=== PATIENT | female | born 1970 | race Caucasian/White ===

== ENCOUNTER 2016-11-01 11:31 | Emergency (ER) | payer OTHER ==
[~2016-11-01 11:31] MED LIST: /TRAZ10TA PO; AUGM875T27 PO; PAXI20TA3 PO; TRAZ100T2 PO; no home meds
--- NOTE | 2016-11-01 13:08 | EDDOCDS ---
[facility]: Adia Marre[facility] Age: 46 yrs Sex: Female : 1970 Arrival Date: 11/01/2016 Time: 11:31 Bed PR Private MD: NO PRIMARY PHYSICIAN, . Disposition: 11/01/16 12:56 Discharged to Home/Self Care. Impression: Pain in left wrist. - Condition is Stable. - Discharge Instructions: Gamekeeper's, Skier's Thumb, Wrist Pain. - Medication Reconciliation, Local Pharmacy Hours form. - Follow up: Orthopaedics, [facility]; When: Call to arrange an appointment; Reason: Further diagnostic work-up, Recheck today's complaints, Continuance of care. - Problem is an ongoing problem. - Symptoms are unchanged. Historical: - Allergies: no known allergies; - Home Meds: 1. Methadone 117mg Oral once daily - PMHx: opiate abuse; - PSHx: ; Gall Bladder Removal; - Social history: Smoking status: Patient uses tobacco products, current every day smoker. No barriers to communication noted, The patient speaks fluent Amharic, Speaks appropriately for age. - Family history: Not pertinent. - : The pt / caregiver states he / she is not on anticoagulants. Home medication list is obtained from the patient. - Exposure Risk Screening:: None identified. 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 3 in. (160.02 cm); Pain 5/10; 12:53 BP 133 / 79; Pulse 102; Resp 18; Temp 97.8(O); Pulse Ox 97% on R/A; Pain 5/10; jb5 11:32 Body Mass Index 29.23 (74.84 kg, 160.02 cm) elp MDM: 11:44 Wrist, Complete Ordered. EDMS 12:00 Financial registration complete. lg 12:08 [facility] [place] Agreement was scanned into [employer] and attached to record. mm15 12:08 [facility] Payment Agreement was scanned into [employer] and attached to record. mm15 12:54 [facility] [place]. Nursing Order ordered. btw Signatures: Dispatcher [employer] EDMS Roxanna Lewis, CAPO RN Siri Szymanski, Eber Lucero lg, PA PA btw Osorio Teague mm15 The chart was reviewed and I authenticate all verbal orders and agree with the evaluation and treatment provided.Attachments: 12:08 [facility] Payment Agreement mm15 MTDD
--- NOTE | 2016-11-01 13:09 | EDDOCDS ---
Nurse's Notes [facility] Name: Adia Marrero Age: 46 yrs Sex: Female : 1970 Arrival Date: 11/01/2016 Time: 11:31 Bed PR Private MD: NO PRIMARY PHYSICIAN, . Diagnosis: Pain in left wrist Presentation: 11/01 11:34 Presenting complaint: Patient states: left wrist pain for 2 months. injured it 2 months srm ago and never had it looked at. pt states it swollen and discolored. Adult Sepsis Screening: The patient does not have new or worsening altered mentation. Patient's respiratory rate is less than 22. Systolic blood pressure is greater than 100. Patient has a qSOFA score of 0- Negative Sepsis Screen. Suicide/Homicide risk assessment- the patient denies having any suicidal and/or homicidal ideations and does not present with any other emotional, behavioral or mental health complaints. Status: Patient is not a business services associate or dependent. Transition of care: patient was not received from another setting of care. 11:34 Acuity: GUILLAUME Level 4 srm 11:34 Method Of Arrival: Walkin/Carried/Asstd srm Triage Assessment: 11:36 General: Appears in no apparent distress, Behavior is appropriate for age, cooperative. srm Pain: Pain currently is 5 out of 10 on a pain scale. HIV screening NA for this visit Offered previously. Musculoskeletal: Reports left wrist pain. 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 Methadone 117mg Oral once daily - PMHx: opiate abuse; - PSHx: ; Gall Bladder Removal; - Social history: Smoking status: Patient uses tobacco products, current every day smoker. No barriers to communication noted, The patient speaks fluent Kyrgyz, Speaks appropriately for age. - Family history: Not pertinent. - : The pt / caregiver states he / she is not on anticoagulants. Home medication list is obtained from the patient. - Exposure Risk Screening:: None identified. Screenin:05 Screening information is obtained from the patient. Fall risk: No risks identified. srm Assistance ADL's: requires no assistance with activities of daily living. Abuse/DV Screen: The patient / caregiver reports he/she is: not in a situation that causes fear, pain or injury. Nutritional screening: No deficits noted. Advance Directives: There is no active DNR order. home support is adequate. Assessment: 13:05 General: Appears in no apparent distress, Behavior is appropriate for age, cooperative. srm Neurological: No deficits noted. EENT: No deficits noted. Musculoskeletal: Circulation, motion, and sensation intact Capillary refill < 3 seconds in left fingers. Vital Signs: 11:32 BP 144 / 86; Pulse 116; Resp 20; Temp 98.8(O); Pulse Ox 99% on R/A; Weight 74.84 kg; elp Height 5 ft. 3 in. (160.02 cm); Pain 5/10; 12:53 BP 133 / 79; Pulse 102; Resp 18; Temp 97.8(O); Pulse Ox 97% on R/A; Pain 5/10; jb5 11:32 Body Mass Index 29.23 (74.84 kg, 160.02 cm) elp Vitals: 11:32 Log In Time: November 01, 2016 at 11:30. elp ED Course: 11:31 Patient visited by Kary Villegas PCA. elp 11:31 NO PRIMARY PHYSICIAN, . is Private Physician. elp 11:31 Patient moved to Waiting elp 11:34 Patient visited by Kary Villegas PCA. elp 11:34 Patient moved to Pre RCE elp 11:35 Triage Initiated srm 11:39 Patient moved to Triage 2 srm 11:53 [facility] Sams [facility]. btw 11:53 Sony Grande MD is Attending Physician. btw 11:54 Patient visited by Eber Sams PA. btw 12:00 Patient moved to TR5 srm 12:08 [facility] Payment Agreement was scanned into [employer] and attached to record. mm15 12:08 [facility] Payment Agreement was scanned into [employer] and attached to record. mm15 12:48 Patient moved to PR1 / 25 jb5 12:53 Patient visited by Radha Velásquez PCA. jb5 12:56 [facility] btw 13:05 The patient / caregiver is instructed regarding the plan of care and ED course. Patient srm has correct armband on for positive identification. 13:05 No IV's were initiated during this patient's visit. No procedures done that require srm assistance. THUMB SPICA- LEFT. Order Results: There are currently no results for this order. Outcome: 12:56 Discharge ordered by Provider. btw 13:05 Discharge Assessment: Patient awake, alert and oriented x 3. No cognitive and/or srm functional deficits noted. Patient verbalized understanding of disposition instructions. patient administered narcotics - no. The following High Risk Discharge criteria are identified: None. Discharged to home ambulatory. Condition: good Condition: stable. Discharge instructions given to patient, Instructed on discharge instructions, follow up and referral plans. Rest, Ice, Compression and Elevation. Demonstrated understanding of instructions, Pt was receptive of discharge instructions/ teaching. No special radiology studies were completed. Property :Personal belongings accompany Pt. 13:07 Patient left the ED. srm Signatures: Roxanna Lewis, CAPO RN Radha Trotter, KNITTING MACHINE TENDER KNITTING MACHINE TENDER jb5 Eber Sams PA PA btw Osorio Teague mm15 Kary Villegas, KNITTING MACHINE TENDER KNITTING MACHINE TENDER elp MTDDes
--- NOTE | 2016-11-01 13:12 | REP ---
LEFT WRIST, FOUR VIEWS: There is no evidence of an acute fracture, dislocation or intrinsic bone disease. IMPRESSION: No fracture or dislocation. Signed by Pillo Mendoza MD 11/01/2016 01:31 P
--- NOTE | 2016-11-03 14:08 | EDDOCDS ---
Nurse's Notes [facility] Name: Adia Marrero Age: 46 yrs Sex: Female : 1970 Arrival Date: 11/01/2016 Time: 11:31 Bed PR Private MD: NO PRIMARY PHYSICIAN, . Diagnosis: Pain in left wrist Presentation: 11/01 11:34 Presenting complaint: Patient states: left wrist pain for 2 months. injured it 2 months srm ago and never had it looked at. pt states it swollen and discolored. Adult Sepsis Screening: The patient does not have new or worsening altered mentation. Patient's respiratory rate is less than 22. Systolic blood pressure is greater than 100. Patient has a qSOFA score of 0- Negative Sepsis Screen. Suicide/Homicide risk assessment- the patient denies having any suicidal and/or homicidal ideations and does not present with any other emotional, behavioral or mental health complaints. Status: Patient is not a expediter service order or dependent. Transition of care: patient was not received from another setting of care. 11:34 Acuity: GUILLAUME Level 4 srm 11:34 Method Of Arrival: Walkin/Carried/Asstd srm Triage Assessment: 11:36 General: Appears in no apparent distress, Behavior is appropriate for age, cooperative. srm Pain: Pain currently is 5 out of 10 on a pain scale. HIV screening NA for this visit Offered previously. Musculoskeletal: Reports left wrist pain. 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 Methadone 117mg Oral once daily - PMHx: opiate abuse; - PSHx: ; Gall Bladder Removal; - Social history: Smoking status: Patient uses tobacco products, current every day smoker. No barriers to communication noted, The patient speaks fluent Guinean, Speaks appropriately for age. - Family history: Not pertinent. - : The pt / caregiver states he / she is not on anticoagulants. Home medication list is obtained from the patient. - Exposure Risk Screening:: None identified. Screenin:05 Screening information is obtained from the patient. Fall risk: No risks identified. srm Assistance ADL's: requires no assistance with activities of daily living. Abuse/DV Screen: The patient / caregiver reports he/she is: not in a situation that causes fear, pain or injury. Nutritional screening: No deficits noted. Advance Directives: There is no active DNR order. home support is adequate. Assessment: 13:05 General: Appears in no apparent distress, Behavior is appropriate for age, cooperative. srm Neurological: No deficits noted. EENT: No deficits noted. Musculoskeletal: Circulation, motion, and sensation intact Capillary refill < 3 seconds in left fingers. Vital Signs: 11:32 BP 144 / 86; Pulse 116; Resp 20; Temp 98.8(O); Pulse Ox 99% on R/A; Weight 74.84 kg; elp Height 5 ft. 3 in. (160.02 cm); Pain 5/10; 12:53 BP 133 / 79; Pulse 102; Resp 18; Temp 97.8(O); Pulse Ox 97% on R/A; Pain 5/10; jb5 11:32 Body Mass Index 29.23 (74.84 kg, 160.02 cm) elp Vitals: 11:32 Log In Time: November 01, 2016 at 11:30. elp ED Course: 11:31 Patient visited by Kary Villegas PCA. elp 11:31 NO PRIMARY PHYSICIAN, . is Private Physician. elp 11:31 Patient moved to Waiting elp 11:34 Patient visited by Kary Villegas PCA. elp 11:34 Patient moved to Pre RCE elp 11:35 Triage Initiated srm 11:39 Patient moved to Triage 2 srm 11:53 [facility]ber Sams [facility]. btw 11:53 Sony Grande MD is Attending Physician. btw 11:54 Patient visited by Eber Sams PA. btw 12:00 Patient moved to TR5 srm 12:08 [facility] Payment Agreement was scanned into [employer] and attached to record. mm15 12:08 [facility] Payment Agreement was scanned into [employer] and attached to record. mm15 12:48 Patient moved to PR1 / 25 jb5 12:53 Patient visited by Radha Velásquez PCA. jb5 12:[facility] btw 13:05 The patient / caregiver is instructed regarding the plan of care and ED course. Patient srm has correct armband on for positive identification. 13:05 No IV's were initiated during this patient's visit. No procedures done that require srm assistance. THUMB SPICA- LEFT. 13:18 Wrist, Complete Returned. EDMS 14:50 T-Sheet-- Draft Copy was scanned into [employer] and attached to record. gb Order Results: Radiology Order: Wrist, Complete Test: Wrist, Complete REASON FOR EXAMINATION: LEFT WRIST INJURY; LEFT WRIST, FOUR VIEWS:; ; There is no evidence of an acute fracture, dislocation or intrinsic bone; disease.; ; IMPRESSION:; ; No fracture or dislocation.; ; ; Signed by; Pillo Mendoza MD 11/01/2016 01:31 P; Outcome: 12:56 Discharge ordered by Provider. btw 13:05 Discharge Assessment: Patient awake, alert and oriented x 3. No cognitive and/or srm functional deficits noted. Patient verbalized understanding of disposition instructions. patient administered narcotics - no. The following High Risk Discharge criteria are identified: None. Discharged to home ambulatory. Condition: good Condition: stable. Discharge instructions given to patient, Instructed on discharge instructions, follow up and referral plans. Rest, Ice, Compression and Elevation. Demonstrated understanding of instructions, Pt was receptive of discharge instructions/ teaching. No special radiology studies were completed. Property :Personal belongings accompany Pt. 13:07 Patient left the ED. srm Signatures: [facility] Roxanna Lewis, CAPO RN srm Karen Ricks, Gil Reg Radha Bansal, MONITORING SPECIALIST MONITORING SPECIALIST jb5 Eber Sams PA PA btw Osorio Teague mm15 Kary Villegas, MONITORING SPECIALIST MONITORING SPECIALIST elp Chart Complete MTDD
--- NOTE | 2016-11-03 14:08 | EDDOCDS ---
Physician Documentation [facility] Name: Adia Marrero Age: 46 yrs Sex: Female : 1970 Arrival Date: 11/01/2016 Time: 11:31 Bed PR Private MD: NO PRIMARY PHYSICIAN, . Disposition: 11/01/16 12:56 Discharged to Home/Self Care. Impression: Pain in left wrist. - Condition is Stable. - Discharge Instructions: Gamekeeper's, Skier's Thumb, Wrist Pain. - Medication Reconciliation, Local Pharmacy Hours form. - Follow up: Orthopaedics, [facility]; When: Call to arrange an appointment; Reason: Further diagnostic work-up, Recheck today's complaints, Continuance of care. - Problem is an ongoing problem. - Symptoms are unchanged. Historical: - Allergies: no known allergies; - Home Meds: 1. Methadone 117mg Oral once daily - PMHx: opiate abuse; - PSHx: ; Gall Bladder Removal; - Social history: Smoking status: Patient uses tobacco products, current every day smoker. No barriers to communication noted, The patient speaks fluent Divehi, Speaks appropriately for age. - Family history: Not pertinent. - : The pt / caregiver states he / she is not on anticoagulants. Home medication list is obtained from the patient. - Exposure Risk Screening:: None identified. 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 3 in. (160.02 cm); Pain 5/10; 12:53 BP 133 / 79; Pulse 102; Resp 18; Temp 97.8(O); Pulse Ox 97% on R/A; Pain 5/10; jb5 11:32 Body Mass Index 29.23 (74.84 kg, 160.02 cm) elp MDM: 11:44 Wrist, Complete Ordered. EDMS 12:00 Financial registration complete. lg 12:08 [facility] [place] Payment Agreement was scanned into [employer] and attached to record. mm15 12:08 [facility] Payment Agreement was scanned into [employer] and attached to record. mm15 12:54 [facility] [place]. Nursing Order ordered. btw 14:50 T-Sheet-- Draft Copy was scanned into [employer] and attached to record. gb Signatures: Dispatcher [employer] EDRoxanna Palomo, RN RN [facility] RamboKaren, Reg Reg gb Siri Alvarez, Reg Reg lg Eber Sams PA PA btw Osorio Teague mm15 The chart was reviewed and I authenticate all verbal orders and agree with the evaluation and treatment provided.Attachments: 12:08 [facility] Payment Agreement mm15 14:50 T-Sheet-- Draft Copy gb Chart Complete MTDD
--- NOTE | 2016-11-03 14:08 | EDDOCDS ---
Physician Documentation [facility] Name: Adia Marrero Age: 46 yrs Sex: Female : 1970 Arrival Date: 11/01/2016 Time: 11:31 Bed PR Private MD: NO PRIMARY PHYSICIAN, . Disposition: 11/01/16 12:56 Discharged to Home/Self Care. Impression: Pain in left wrist. - Condition is Stable. - Discharge Instructions: Gamekeeper's, Skier's Thumb, Wrist Pain. - Medication Reconciliation, Local Pharmacy Hours form. - Follow up: Orthopaedics, [facility]; When: Call to arrange an appointment; Reason: Further diagnostic work-up, Recheck today's complaints, Continuance of care. - Problem is an ongoing problem. - Symptoms are unchanged. Historical: - Allergies: no known allergies; - Home Meds: 1. Methadone 117mg Oral once daily - PMHx: opiate abuse; - PSHx: ; Gall Bladder Removal; - Social history: Smoking status: Patient uses tobacco products, current every day smoker. No barriers to communication noted, The patient speaks fluent Telugu, Speaks appropriately for age. - Family history: Not pertinent. - : The pt / caregiver states he / she is not on anticoagulants. Home medication list is obtained from the patient. - Exposure Risk Screening:: None identified. 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 3 in. (160.02 cm); Pain 5/10; 12:53 BP 133 / 79; Pulse 102; Resp 18; Temp 97.8(O); Pulse Ox 97% on R/A; Pain 5/10; jb5 11:32 Body Mass Index 29.23 (74.84 kg, 160.02 cm) elp MDM: 11:44 Wrist, Complete Ordered. EDMS 12:00 Financial registration complete. lg 12:08 [facility] [place] Payment Agreement was scanned into [employer] and attached to record. mm15 12:08 [facility] Payment Agreement was scanned into [employer] and attached to record. mm15 12:54 [facility] [place]. Nursing Order ordered. btw 14:50 T-Sheet-- Draft Copy was scanned into [employer] and attached to record. gb Signatures: Dispatcher [employer] EDRoxanna Palomo, RN RN [facility] RamboKaren, Reg Reg gb Siri Alvarez, Reg Reg lg Eber Sams PA PA btw Osorio Teague mm15 The chart was reviewed and I authenticate all verbal orders and agree with the evaluation and treatment provided.Attachments: 12:08 [facility] Payment Agreement mm15 14:50 T-Sheet-- Draft Copy gb Chart Complete MTDD
== END 2016-11-01 13:07 | disposition home or self-care (01) ==
LOC: M ED 11:31
DX: M25.532 Pain in left wrist (principal); F11.10 Opioid abuse, uncomplicated; Z90.49 Acquired absence of other specified parts of digestive tract; Z72.0 Tobacco use; Z79.899 Other long term (current) drug therapy

== ENCOUNTER → 2018-01-07 | Outpatient (REF) | payer OTHER | LOC: M LAB REF 19:18 | DX: L02.811 Cutaneous abscess of head [any part, except face] (principal) ==

== ENCOUNTER 2018-06-04 05:59 | Emergency (ER) | payer OTHER, MEDICAID ==
[2018-06-04] MEDS: EXPOSURE KIT-ADULT 7 DAY SUPPLY PO (06:30)
[2018-06-04] MEDS: ADACEL/BOOSTRIX VACCINE (DIPHTH/PERTUSS/ACELL/TETANUS)0.5ML SYR (90715) IM (06:46)
[2018-06-04 06:52] LABS: BASO % 0.2 % (0.0-1.0); EOS # 0.3 10^3/uL (0.0-0.50); EOS % 3.1 % (0.0-3.0); HEMATOCRIT 41.8 % (36.0-47.0); HEMOGLOBIN 13.6 g/dl (12.0-15.5); IMMATURE GRANULOCYTE % 0.4 % (0-3.0); LYMPH # 3.8 10^3/uL (1.5-4.5); LYMPH % 39.5 % (24.0-44.0); MEAN CORPUSCULAR HEMOGLOBIN 27.3 pg (27.0-33.0); MEAN CORPUSCULAR HGB CONC 32.5 g/dl (32.0-36.5); MEAN CORPUSCULAR VOLUME 83.9 fl (80.0-96.0); MONO # 0.7 10^3/uL (0.0-0.8); NEUTROPHILS # 4.8 10^3/uL (1.8-7.7); NEUTROPHILS % 49.8 % (36.0-66.0); PLATELET COUNT, AUTOMATED 324 10^3/uL (150-450); RED BLOOD COUNT 4.98 10^6/uL (4.00-5.40); RED CELL DISTRIBUTION WIDTH 13.3 % (11.5-14.5); WHITE BLOOD COUNT 9.6 10^3/uL (4.0-10.0)
[2018-06-04 07:15] LABS: CONTROL LINE HCG INT CTR LINE PRESENT; HCG, SERUM QUALITATIVE NEGATIVE (NEGATIVE)
[2018-06-04 07:18] LABS: ALBUMIN 3.6 GM/DL (3.2-5.2); ALBUMIN/GLOBULIN RATIO 0.92 (1.00-1.93); ALKALINE PHOSPHATASE 138 U/L (45-117); ALT/SGPT 38 U/L (12-78); ANION GAP 6 MEQ/L (8-16); AST/SGOT 33 U/L (7-37); BILIRUBIN,TOTAL 0.3 MG/DL (0.2-1.0); BLOOD UREA NITROGEN 5 MG/DL (7-18); CALCIUM LEVEL 9.4 MG/DL (8.5-10.1); CARBON DIOXIDE LEVEL 31 MEQ/L (21-32); CHLORIDE LEVEL 103 MEQ/L (98-107); GLOMERULAR FILTRATION RATE > 60.0 (>58); GLUCOSE, FASTING 123 MG/DL (70-100); POTASSIUM SERUM 4.8 MEQ/L (3.5-5.1); SODIUM LEVEL 140 MEQ/L (136-145); TOTAL PROTEIN 7.5 GM/DL (6.4-8.2)
[2018-06-04 07:36] LABS: CONTROL LINE INT CTR LINE PRESENT; HIV SCRN NEGATIVE (NEGATIVE); HIV SCRN1 NEGATIVE (NEGATIVE)
[2018-06-04 07:40] LABS: HEPATITIS B SURFACE ANTIBODY POSITIVE (POSITIVE)
[2018-06-05 10:19] LABS: HEPATITIS B SURFACE ANTIGEN NEGATIVE (NEGATIVE)
[2018-06-05 11:01] LABS: HEPATITIS C VIRUS ABY INDEX > 11.0 INDEX (<0.8)
[2018-06-10 00:06] LABS: HCV RNA NAA QUALITATIVE Negative (Negative)
== END 2018-06-04 08:02 | disposition home or self-care (01) ==
LOC: M ED 05:59
DX: Z77.21 Contact with and (suspected) exposure to potentially hazardous body fluids (principal); S61.232A Puncture wound without foreign body of right middle finger without damage to nail, initial encounter; W46.1XXA Contact with contaminated hypodermic needle, initial encounter; Y92.59 Other trade areas as the place of occurrence of the external cause; F17.200 Nicotine dependence, unspecified, uncomplicated; Z79.899 Other long term (current) drug therapy
CPT/HCPCS: 90715

== ENCOUNTER → 2018-07-06 | Outpatient (REF) | payer OTHER ==
[2018-07-06 15:48] LABS: HEMATOCRIT 41.3 % (36.0-47.0); HEMOGLOBIN 13.2 g/dl (12.0-15.5); MEAN CORPUSCULAR HEMOGLOBIN 27.2 pg (27.0-33.0); MEAN CORPUSCULAR VOLUME 85.2 fl (80.0-96.0); PLATELET COUNT, AUTOMATED 177 10^3/uL (150-450); RED BLOOD COUNT 4.85 10^6/uL (4.00-5.40); RED CELL DISTRIBUTION WIDTH 13.5 % (11.5-14.5); WHITE BLOOD COUNT 10.8 10^3/uL (4.0-10.0)
[2018-07-06 15:51] LABS: ADD MANUAL DIFFER YES; DIFF SLIDE NUMBER 256; POSITIVE DIFF POS FLAG
[2018-07-06 16:08] LABS: ATYPICAL LYMPH 4 % (0-5); EOSINOPHILS 1 % (0-5); LYMPHOCYTES 54 % (16-52); MONOCYTES 9 % (0-8); NEUTROPHILS 32 % (35-75)
[2018-07-06 16:10] LABS: PLATELET ESTIMATE NORMAL (NORMAL)
[2018-07-07 01:14] LABS: ALBUMIN 3.4 GM/DL (3.2-5.2); ALKALINE PHOSPHATASE 133 U/L (45-117); ALT/SGPT 32 U/L (12-78); ANION GAP 10 MEQ/L (8-16); AST/SGOT 21 U/L (7-37); BILIRUBIN,TOTAL 0.2 MG/DL (0.2-1.0); BLOOD UREA NITROGEN 6 MG/DL (7-18); CALCIUM LEVEL 9.2 MG/DL (8.5-10.1); CARBON DIOXIDE LEVEL 26 MEQ/L (21-32); CHLORIDE LEVEL 103 MEQ/L (98-107); CREATININE FOR GFR 0.53 MG/DL (0.55-1.30); GLOMERULAR FILTRATION RATE > 60.0 (>58); GLUCOSE, FASTING 83 MG/DL (70-100); SODIUM LEVEL 139 MEQ/L (136-145); TOTAL PROTEIN 7.3 GM/DL (6.4-8.2)
[2018-07-07 01:15] LABS: ALBUMIN/GLOBULIN RATIO 0.87 (1.00-1.93)
[2018-07-08 19:23] LABS: HIV 1&2 SCREEN CENTAUR NEGATIVE (NEGATIVE)
[2018-07-09 00:07] LABS: HEPATITIS C QUANTITATION HCV Not Detected IU/mL (.)
== END ==
LOC: M SFHCPLAZ 13:21
DX: R76.8 Other specified abnormal immunological findings in serum (principal)

== ENCOUNTER → 2018-09-07 | Outpatient (REF) | payer OTHER ==
[2018-09-07 16:49] LABS: ALBUMIN 3.1 GM/DL (3.2-5.2); ALBUMIN/GLOBULIN RATIO 0.84 (1.00-1.93); ALKALINE PHOSPHATASE 153 U/L (45-117); ALT/SGPT 34 U/L (12-78); ANION GAP 6 MEQ/L (8-16); AST/SGOT 28 U/L (7-37); BILIRUBIN,DIRECT < 0.1 MG/DL (0.0-0.2); BILIRUBIN,TOTAL 0.2 MG/DL (0.2-1.0); BLOOD UREA NITROGEN 7 MG/DL (7-18); CALCIUM LEVEL 8.7 MG/DL (8.5-10.1); CARBON DIOXIDE LEVEL 29 MEQ/L (21-32); CHLORIDE LEVEL 102 MEQ/L (98-107); CREATININE FOR GFR 0.69 MG/DL (0.55-1.30); FREE T4 1.13 NG/DL (0.76-1.46); GLOMERULAR FILTRATION RATE > 60.0 (>58); GLUCOSE, FASTING 168 MG/DL (70-100); POTASSIUM SERUM 4.5 MEQ/L (3.5-5.1); SODIUM LEVEL 137 MEQ/L (136-145); THYROID STIMULATING HORMONE 0.679 uIU/ML (0.358-3.740); TOTAL PROTEIN 6.8 GM/DL (6.4-8.2)
[2018-09-07 17:15] LABS: HEMATOCRIT 41.1 % (36.0-47.0); HEMOGLOBIN 12.7 g/dl (12.0-15.5); MEAN CORPUSCULAR HEMOGLOBIN 26.5 pg (27.0-33.0); MEAN CORPUSCULAR HGB CONC 30.9 g/dl (32.0-36.5); MEAN CORPUSCULAR VOLUME 85.6 fl (80.0-96.0); RED CELL DISTRIBUTION WIDTH 13.2 % (11.5-14.5); WHITE BLOOD COUNT 9.1 10^3/uL (4.0-10.0)
[2018-09-07 17:24] LABS: ADD MANUAL DIFFER YES; DIFF SLIDE NUMBER 278; POSITIVE DIFF POS FLAG
[2018-09-07 17:28] LABS: HIV 1&2 SCREEN CENTAUR NEGATIVE (NEGATIVE)
[2018-09-07 18:01] LABS: ATYPICAL LYMPH 7 % (0-5); BASOPHILS 1 % (0-4); EOSINOPHILS 5 % (0-5); LYMPHOCYTES 41 % (16-52); MONOCYTES 6 % (0-8); NEUTROPHILS 40 % (35-75); PLATELET ESTIMATE INVALID (NORMAL)
[2018-09-09 12:20] LABS: HEPATITIS B SURFACE ANTIGEN NEGATIVE (NEGATIVE)
[2018-09-10 10:15] LABS: DEAMIDATED GLIADIN ABS, IgA 4 units (0-19); DEAMIDATED GLIADIN ABS, IgG 8 units (0-19); ENDOMYSIAL ANTIBODY IgA Negative (Negative); HEPATITIS C QUANTITATION HCV Not Detected IU/mL (.); IMMUNOGLOBULIN A 268 mg/dL (87-352); t-TRANSGLUTAMINASE(tTG) IgA <2 U/mL (0-3); t-TRANSGLUTAMINASE(tTG) IgG <2 U/mL (0-5)
== END ==
LOC: M SFHCPLAZ 13:08
DX: S61.239A Puncture wound without foreign body of unspecified finger without damage to nail, initial encounter (principal); F41.9 Anxiety disorder, unspecified; W46.0XXA Contact with hypodermic needle, initial encounter; R10.84 Generalized abdominal pain

== ENCOUNTER → 2019-03-30 | Outpatient (REF) ==
[~2019-03-30] MED LIST changes: -/TRAZ10TA PO; +RALT40TA PO; +TRAZ1TAB25 PO; +TRUVTAB PO
== END ==
LOC: M LAB 13:43
PROVIDERS: ATTEND Nurse Practitioner Adult Health
DX: Z02.9 Encounter for administrative examinations, unspecified (principal)

== ENCOUNTER 2021-07-16 21:37 | Emergency (ER) | payer OTHER ==
[~2021-07-16] VITALS: Ht 160 cm; Wt 75.0 kg
[~2021-07-16 21:37] MED LIST changes: +EMTR1TAB16 PO; -TRUVTAB PO
[2021-07-16] MEDS ORDERED: METH-1177 PO (21:56)
[2021-07-17 05:00] VITALS: BP 140/83
== END 2021-07-17 05:10 | disposition home or self-care (01) ==
LOC: M ED 21:37
DX: T40.1X1A Poisoning by heroin, accidental (unintentional), initial encounter (principal); F17.200 Nicotine dependence, unspecified, uncomplicated; F19.10 Other psychoactive substance abuse, uncomplicated

== ENCOUNTER → 2022-06-19 | Outpatient (CLI) | payer OTHER ==
[~2022-06-19] MED LIST changes: +METH-1177 PO
== END ==
LOC: M WHC 13:40
PROVIDERS: ATTEND Pediatrics
DX: Z12.31 Encounter for screening mammogram for malignant neoplasm of breast (principal)

== ENCOUNTER → 2022-11-07 | Outpatient (CLI) | payer OTHER | LOC: M SOG 09:32 | PROVIDERS: ATTEND Physician Assistant | DX: M25.531 Pain in right wrist (principal); Z53.9 Procedure and treatment not carried out, unspecified reason ==

== ENCOUNTER → 2022-11-28 | Outpatient (CLI) | payer OTHER | LOC: M WUC 13:20 | PROVIDERS: ATTEND Student in an Organized Health Care Education/Training Program | DX: M79.641 Pain in right hand (principal) ==

== ENCOUNTER → 2023-10-14 | Outpatient (CLI) | payer OTHER ==
[~2023-10-14] MED LIST changes: +GASTROGRAFIN SOLUTION 30ML As Ordered ONE; +ISOVUE-370 76% 100ML VIAL As Ordered ONE
== END ==
LOC: M RAD 13:12
PROVIDERS: ATTEND Surgery
DX: K43.0 Incisional hernia with obstruction, without gangrene (principal)
CPT/HCPCS: 74177; Q9963; Q9967

== ENCOUNTER → 2023-11-24 | Outpatient (REF) | payer OTHER ==
[~2023-11-24] MED LIST changes: -GASTROGRAFIN SOLUTION 30ML As Ordered ONE; -ISOVUE-370 76% 100ML VIAL As Ordered ONE
[2023-11-24 18:33] LABS: ALBUMIN 3.1 G/DL (3.2-5.2); ALKALINE PHOSPHATASE 151 U/L (46-116); ALT/SGPT 25 U/L (7.0-40); AST/SGOT 20 U/L (<34); BILIRUBIN,TOTAL 0.2 MG/DL (0.3-1.2); BLOOD UREA NITROGEN 7 MG/DL (9-23); CALCIUM LEVEL 9.2 MG/DL (8.5-10.1); CARBON DIOXIDE LEVEL 32 MMOL/L (20-31); CHLORIDE LEVEL 103 MMOL/L (98-107); CHOLESTEROL LEVEL 142 MG/DL (<200); CHOLESTEROL RISK RATIO 3.67 (<5); CREATININE FOR GFR 0.59 MG/DL (0.55-1.30); GLOMERULAR FILTRATION RATE > 60.0 (>51); GLUCOSE, FASTING 102 MG/DL (60-100); HDL CHOLESTEROL 38.6 MG/DL (>40); LDL CHOLESTEROL 83.4 MG/DL (<100); NON-HDL-C 103.4 MG/DL; POTASSIUM SERUM 4.5 MMOL/L (3.5-5.1); SODIUM LEVEL 137 MMOL/L (136-145); TOTAL PROTEIN 6.6 G/DL (5.7-8.2); TRIGLYCERIDES LEVEL 100 MG/DL (<150)
[2023-11-24 18:35] LABS: THYROID STIMULATING HORMONE 1.062 uIU/ML (0.55-4.78)
[2023-11-24 18:40] LABS: BASO % 0.4 % (0.0-1.0); EOS # 0.5 10^3/uL (0.0-0.5); EOS % 4.6 % (0.0-3.0); HEMATOCRIT 41.8 % (36.0-47.0); HEMOGLOBIN 13.3 g/dl (12.0-15.5); LYMPH # 4.3 10^3/uL (1.5-5.0); LYMPH % 43.9 % (24.0-44.0); MEAN CORPUSCULAR HEMOGLOBIN 27.3 pg (27.0-33.0); MEAN CORPUSCULAR HGB CONC 31.8 g/dl (32.0-36.5); MEAN CORPUSCULAR VOLUME 85.7 fl (80.0-96.0); MONO # 0.6 10^3/uL (0.0-0.8); MONO % 6.1 % (2.0-8.0); NEUTROPHILS # 4.4 10^3/uL (1.5-8.5); NEUTROPHILS % 44.7 % (36.0-66.0); PLATELET COUNT, AUTOMATED 235 10^3/uL (150-450); RED BLOOD COUNT 4.88 10^6/uL (4.00-5.40); WHITE BLOOD COUNT 9.8 10^3/uL (4.0-10.0)
== END ==
LOC: M LAB REF 18:02
PROVIDERS: ATTEND Pediatrics
DX: F17.200 Nicotine dependence, unspecified, uncomplicated (principal); K76.0 Fatty (change of) liver, not elsewhere classified; Z68.26 Body mass index [BMI] 26.0-26.9, adult

== ENCOUNTER → 2024-08-25 | Outpatient (REF) | LOC: M PLAIMG 12:39 | PROVIDERS: ATTEND Internal Medicine | DX: R52 Pain, unspecified (principal) ==

== ENCOUNTER → 2024-10-30 | Outpatient (CLI) | payer OTHER | LOC: M RAD 15:23 | PROVIDERS: ATTEND Physician Assistant Medical | DX: M54.2 Cervicalgia (principal); M47.812 Spondylosis without myelopathy or radiculopathy, cervical region; M85.88 Other specified disorders of bone density and structure, other site ==

== ENCOUNTER → 2025-05-20 | Outpatient (REF) | payer OTHER ==
[2025-05-20 17:42] LABS: ALT/SGPT 25 U/L (7.0-40); AST/SGOT 26 U/L (<34); CALCIUM LEVEL 9.4 MG/DL (8.5-10.1); CARBON DIOXIDE LEVEL 32 MMOL/L (20-31); CHLORIDE LEVEL 104 MMOL/L (98-107); CREATININE FOR GFR 0.64 MG/DL (0.55-1.30); GLOMERULAR FILTRATION RATE > 90.0 (>51); POTASSIUM SERUM 5.2 MMOL/L (3.5-5.1); SODIUM LEVEL 143 MMOL/L (136-145)
[2025-05-20 18:05] LABS: BASO # 0.0 10^3/uL (0.0-0.2); BASO % 0.3 % (0.0-1.0); EOS # 0.4 10^3/uL (0.0-0.5); EOS % 4.4 % (0.0-3.0); LYMPH # 3.2 10^3/uL (1.5-5.0); LYMPH % 33.6 % (24.0-44.0); MONO # 0.7 10^3/uL (0.0-0.8); MONO % 7.2 % (2.0-8.0); NEUTROPHILS # 5.1 10^3/uL (1.5-8.5); NEUTROPHILS % 54.2 % (36.0-66.0); PLATELET COUNT, AUTOMATED 169 10^3/uL (150-450)
== END ==
LOC: M LAB REF 17:07
PROVIDERS: ATTEND Pediatrics
DX: K22.719 Barrett's esophagus with dysplasia, unspecified (principal); R16.0 Hepatomegaly, not elsewhere classified

== ENCOUNTER 2025-07-08 10:59 | Emergency (ER) | payer OTHER ==
[~2025-07-08] VITALS: Ht 160 cm; Wt 63.8 kg
[2025-07-08 11:09] VITALS: TEMP 98.5
[2025-07-08 11:43] LABS: BASO # 0.0 10^3/uL (0.0-0.2); BASO % 0.4 % (0.0-1.0); EOS # 0.3 10^3/uL (0.0-0.5); EOS % 4.6 % (0.0-3.0); LYMPH # 2.8 10^3/uL (1.5-5.0); LYMPH % 38.0 % (24.0-44.0); MONO # 0.5 10^3/uL (0.0-0.8); MONO % 6.3 % (2.0-8.0); NEUTROPHILS # 3.8 10^3/uL (1.5-8.5); NEUTROPHILS % 50.4 % (36.0-66.0); PLATELET COUNT, AUTOMATED 259 10^3/uL (150-450)
[2025-07-08 12:13] LABS: CALCIUM LEVEL 9.3 MG/DL (8.5-10.1); CARBON DIOXIDE LEVEL 29 MMOL/L (20-31); CHLORIDE LEVEL 106 MMOL/L (98-107); CK-MB VALUE MASS 2.8 NG/ML (<3.6); CPK CREATINE PHOSPHOKINASE 83 U/L (34-145); CREATININE FOR GFR 0.49 MG/DL (0.55-1.30); GLOMERULAR FILTRATION RATE > 90.0 (>51); MB/CK RELATIVE INDEX 3.37 (< OR =4); POTASSIUM SERUM 4.2 MMOL/L (3.5-5.1); SODIUM LEVEL 141 MMOL/L (136-145)
[2025-07-08 13:06] LABS: CK-MB VALUE MASS 2.6 NG/ML (<3.6)
[2025-07-08 13:13] LABS: CPK CREATINE PHOSPHOKINASE 82 U/L (34-145); MB/CK RELATIVE INDEX 3.17 (< OR =4)
[2025-07-08 13:15] VITALS: BP 131/77; O2SAT 96
[2025-07-08] MEDS ORDERED: ASPI81TA26 PO (13:27)
== END 2025-07-08 13:40 | disposition home or self-care (01) ==
LOC: M ED 10:59
DX: R07.89 Other chest pain (principal); J44.9 Chronic obstructive pulmonary disease, unspecified; J45.909 Unspecified asthma, uncomplicated; F17.210 Nicotine dependence, cigarettes, uncomplicated; Z79.1 Long term (current) use of non-steroidal anti-inflammatories (NSAID); Z79.899 Other long term (current) drug therapy

== ENCOUNTER → 2025-10-26 | Outpatient (CLI) | payer OTHER ==
[~2025-10-26] MED LIST changes: +ASPI81TA26 PO
[2025-10-26 14:40] LABS: ALT/SGPT 21 U/L (7.0-40); AST/SGOT 22 U/L (<34)
[2025-10-29 12:27] LABS: ANTI-MITOCHONDRIAL ANTIBODY Negative (Negative)
[2025-10-30 22:48] LABS: ALKALINE PHOSPHATASE ISO-MACR0 0 % (<=0); ALKALINE PHOSPHATASE ISO-PLAC 6 % (<=0); Alkaline Phosphatase Iso-Bone 44 % (28-66); Alkaline Phosphatase Iso-Intes 0 % (1-24); Alkaline Phosphatase Iso-Liver 50 % (25-69); TOTAL ALK PHOS 129 U/L (37-153)
[2025-10-31 15:33] LABS: ANTI-SMOOTH MUSCLE ANTIBODY < 20 U (<20)
[2025-11-01 15:47] LABS: LIVER-KIDNEY MICROSOMAL ABY <= 20.0 U (<=20.0)
== END ==
LOC: M LAB 12:40
PROVIDERS: ATTEND Pediatrics
DX: R74.8 Abnormal levels of other serum enzymes (principal); Z86.19 Personal history of other infectious and parasitic diseases